=== PATIENT | female | born 1990 | race Caucasian/White ===

== ENCOUNTER 2018-02-19 11:10 | Emergency (ER) | payer OTHER ==
[~2018-02-19] VITALS: Ht 170.2 cm; Wt 98.4 kg
[~2018-02-19 11:10] MED LIST: FISH OIL CONCEN1 SGL PO; HYDROCODONE/ACE1 TA1 PO; ORTHO TRI-CYCL1 EACH PO; PRILOSEC40 MG PO; TRAMADOL HCL50 M1 PO; XANAX0.5 M1 PO; ZANTAC150 MG PO
--- NOTE | 2018-02-19 12:49 | ED CARDIAC/CP/PALPITATIONS ---
History of Present Illness General Chief Complaint: Chest Pain Stated Complaint: SIB CHEST PAIN,RADIATES TO BACK AND LEG Source: patient Exam Limitations: no limitations Vital Signs & Intake/Output Vital Signs & Intake/Output Vital Signs Date Time Temp Pulse Resp B/P B/P Pulse O2 O2 Flow FiO2 Mean Ox Delivery Rate 02/19 1659 97.8 68 18 123/75 99 Room Air 02/19 1400 98.0 68 18 124/75 99 Room Air 02/19 1250 99 Room Air 02/19 1152 98.0 92 18 155/92 97 Room Air Room Air Allergies Coded Allergies: Penicillins (RASH, HIVES 02/13/16) amoxicillin (RASH, HIVES 02/13/16) Reconcile Medications Alprazolam (Xanax) 0.5 MG TABLET 1 TAB PO BIDP PRN ANXIETY (Reported) Cyclobenzaprine HCl 10 MG TABLET 1 TAB PO TID SPASMS Methylprednisolone. (Medrol) 4 MG TAB.DS.PK 1 DP PO AD BACK/CALF PAIN 6 on day 1 then reduce by one tablet daily until gone Norgestimate-Ethinyl Estradiol (Ortho Tri-Cyclen 28 Tablet) 1XOXYS9 28 TABLET 1 TAB PO DAILY BC (Reported) Omeprazole 40 MG CAPSULE.DR 1 CAP PO DAILY ACID REFLUX (Reported) Triage Note: PT TO ED WITH C/O FOOT NUMBNESS FOR A WEEK ON AND OFF. ALSO C/O UPPER ABD PAIN SINCE THIS AM, "I HAD A ULCER A WHILE AGO, I'M ON MEDS FOR IT, AND I AM GOING FOR A US FOR MY GALLBLADDER SOON". LAST MENSES: 01/21/18. Triage Nurses Notes Reviewed? yes Onset: Abrupt Duration: day(s): (9), constant Timing: recent history Quality/Severity: moderate Activities at Onset: none : No Patient currently breastfeeds: No HPI: 28-year-old female comes into the emergency room complaints of pain to her right And some chest pains. She reports that she been having symptoms for the past 9 days. She has pain from her right calf that shoots down to her foot. She denies any fever. She denies any chills. She has not been experiencing some associated chest pains. Sharp. Radiates to her shoulders. Denies any vomiting. Nothing seemed to make the symptoms better or worse. She called her doctor who sent her in here for further evaluation for possible blood clots. She is on control. (Darrin Ramey) Past History Travel History Traveled to [place] past 21 day No Medical History Any Pertinent Medical History? see below for history Neurological: NONE EENT: NONE Cardiovascular: NONE Respiratory: NONE Gastrointestinal: NONE Hepatic: NONE Renal: NONE Musculoskeletal: NONE Psychiatric: NONE Endocrine: NONE Blood Disorders: NONE SCIENTIFIC LABORATORY SUPERVISOR/Reproductive: NONE Surgical History Surgical History: N Psychosocial History What is your primary language [place] Tobacco Use: Never used ETOH Use: denies use Illicit Drug Use: denies illicit drug use Family History Hx Contributory? No (Darrin Ramey) Review of Systems Review of Systems Constitutional: Reports: no symptoms. EENTM: Reports: no symptoms. Respiratory: Reports: see HPI. Cardiovascular: Reports: see HPI. GI: Reports: no symptoms. Genitourinary: Reports: no symptoms. Musculoskeletal: Reports: see HPI. Skin: Reports: no symptoms. Neurological/Psychological: Reports: no symptoms. Hematologic/Endocrine: Reports: no symptoms. Immunologic/Allergic: Reports: no symptoms. All Other Systems: Reviewed and Negative (Darrin Ramey) Physical Exam Physical Exam General Appearance: well developed/nourished, no apparent distress, alert, awake Head: atraumatic, normal appearance Eyes: Bilateral: normal appearance, EOMI. Ears, Nose, Throat: normal ENT inspection, hearing grossly normal Neck: normal inspection Respiratory: normal breath sounds, no respiratory distress Cardiovascular: regular rate/rhythm Gastrointestinal: soft, non-tender Back: normal inspection Extremities: normal inspection, no edema Neurologic/Psych: awake, alert, oriented x 3, normal gait Skin: intact, normal color Core Measures ACS in differential dx? No CVA/TIA Diagnosis No Sepsis Present: No Sepsis Focused Exam Completed? No (Darrin Ramey) Progress Differential Diagnosis: AMI, aortic dissection, costochondritis, hyperthyroid, myocarditis, pancreatitis, pericarditis, pneumonia, pneumothorax, pulmonary embolism, PUD/GERD Plan of Care: Orders Procedure Date/time Status Telemetry/Tax Lawyer 02/19 1248 Active URINE 02/19 1248 Complete TROPONIN LEVEL 02/19 1248 Complete D-DIMER 02/19 1248 Complete COMPREHENSIVE METABOLIC PANEL 02/19 1248 Complete CBC WITHOUT DIFFERENTIAL 02/19 1248 Complete EKG 02/19 1113 Active Laboratory Tests 02/19/18 1450: Urine Test NEGATIVE 02/19/18 1310: Anion Gap 15, Estimated GFR > 60, BUN/Creatinine Ratio 18.6, Glucose 99, Calcium 9.2, Total Bilirubin 0.6, AST 29, ALT 28, Alkaline Phosphatase 92, Troponin I < 0.01, Total Protein 7.1, Albumin 3.9, Globulin 3.2, Albumin/Globulin Ratio 1.2, D-Dimer High Sensitivty < 200, CBC w Diff NO MAN DIFF REQ, RBC 4.18 L, MCV 84.9 , MCH 28.5, MCHC 33.6, RDW 15.0 H, MPV 7.3 L, Gran % 69.0, Lymphocytes % 23.9, Monocytes % 6.1, Eosinophils % 0.6, Basophils % 0.4, Absolute Granulocytes 5.6, Absolute Lymphocytes 1.9, Absolute Monocytes 0.5, Absolute Eosinophils 0, Absolute Basophils 0 Diagnostic Imaging: Viewed by Me: Radiology Read, Ultrasound. Discussed w/RAD: Radiology Read, Ultrasound. Radiology Impression: PATIENT: JOHANNE KESSLER MEDICAL RECORD NO: PRESENT AGE: 28 PATIENT ACCOUNT NO: [id number] : 88 LOCATION: [facility] ORDERING PHYSICIAN: Darrin HULL SERVICE DATE: 02/19/18 EXAM TYPE : RAD - XRY-CHEST XRAY, TWO VIEWS EXAMINATION: XR CHEST CLINICAL INFORMATION: 28 -year-old female with chest pain and shortness of breath. COMPARISON: Chest x- ray on 12/09/2017. (Normal). TECHNIQUE: 2 views of the chest were obtained. FINDINGS: No significant abnormality is noted involving the heart, lungs, mediastinum, bony thorax or soft tissues. IMPRESSION: Unremarkable examination. DICTATED BY: Drew Hogan MD DATE/TIME DICTATED:02/19/181619 EDITORIAL CARTOONIST:BARRY DATE/TIME TRANSCRIBED:02/19/181619 CONFIDENTIAL, DO NOT COPY WITHOUT APPROPRIATE AUTHORIZATION. <Electronically signed in Other Vendor System> SIGNED BY: Drew Hogan MD 02/19/18 1626, PATIENT: JOHANNE KESSLER MEDICAL RECORD NO: PRESENT AGE: 28 PATIENT ACCOUNT NO: [id number] : 88 LOCATION: [facility] ORDERING PHYSICIAN: Darrin HULL SERVICE DATE: 02/19/18 EXAM TYPE: US - US-EXT BILAT VENOUS DOPPLER EXAMINATION: BILATERAL LOWER EXTREMITY DEEP VENOUS ULTRASOUND CLINICAL INFORMATION: Right calf pain COMPARISON: No similar prior examinations are minimal for comparison. TECHNIQUE: Duplex Doppler imaging with compression maneuvers were performed of the bilateral lower extremity deep venous systems. FINDINGS: The bilateral visualized common femoral, femoral and popliteal veins demonstrate normal compressibility and color flow without evidence of venous thrombosis. Visualized portions of the bilateral calf veins demonstrate normal color fill-in suggesting patency. There is no evidence of a Maldonado's cyst. IMPRESSION: No evidence of deep venous thrombosis involving the bilateral lower extremities. DICTATED BY: Alonso Palumbo MD DATE/TIME DICTATED:02/19/181444 EDITORIAL CARTOONIST:BARRY DATE/TIME TRANSCRIBED:02/19/181444 CONFIDENTIAL, DO NOT COPY WITHOUT APPROPRIATE AUTHORIZATION. <Electronically signed in Other Vendor System> SIGNED BY: Alonso Palumbo MD 02/19/18 1322 Initial ED EKG: normal sinus rhythm, rate (84), BORDERLINE T WAVE ABNORMALITIES Comments: 02/19/2018 5:34:34 PM Patient clinically looks well. Patient is in no apparent distress. Patient is nontoxic-appearing. Resting comfortably in room. No evidence of DVT. No suspicion for PE. Her Pain could be lumbar radiculopathy/sciatica. She reports that she is noticing at this time that she is experiencing some pain from her upper back now shooting down her leg. She did not have that prior. In regards to chest pain her dimer is negative. Chest x-ray within normal limits. Normal troponin. She has no current abdominal pain on exam. Does not feel like her previous peptic ulcer. She is on a PPI already. She can follow-up with her PCP. Patient was seen by Dr. Bonner. (Vinicio HULL,Darrin) Departure Departure Disposition: HOME OR SELF CARE Condition: Stable Clinical Impression Primary Impression: Right calf pain Secondary Impressions: Atypical chest pain Referrals: Yin Esparza DO (PCP/Family) Additional Instructions: Take Medrol Dosepak and Flexeril as prescribed. Follow-up with PCP. Return if any concerns worsening symptoms. Please go over all results of today's visit with your primary care doctor. Contact your primary care doctor to let them know you were here in the emergency room. There may be nonspecific findings which may not be related to your visit today here in the emergency room but may require further evaluation and chronic monitoring by your primary care doctor. If you had a laceration today the chance of foreign body always remains. You should follow-up with your primary care doctor for recheck in 3-5 days for a wound check. If you had an x-ray done there is a chance that a fracture could have been missed on initial read and you should follow-up with your primary care doctor for repeat x-rays if symptoms persist. If your blood pressure was elevated here in the emergency room please have rechecked by [facility] primary care doctor within the next 48. If you were prescribed a narcotic here in the emergency room or any type of controlled substances you're not allowed to drive while taking this medication or operate any type of heavy machinery. Narcotics can make you feel lightheaded dizziness nausea and can cause constipation. You may need to cigar packer and picker a stool softener. Thank you for choosing [facility] emergency room. Please return to the emergency room immediately if you have any other concerns worsening of symptoms. Departure Forms: Customer Survey General Discharge Information Prescriptions: Current Visit Scripts Methylprednisolone. (Medrol) 1 DP PO AD #1 DP 6 on day 1 then reduce by one tablet daily until gone Cyclobenzaprine HCl 1 TAB PO TID #20 TAB (Darrin Ramey) PA/DAM OPERATOR Co-Sign Statement Statement: ED Attending supervision documentation- [X] I saw and evaluated the patient. I have also reviewed all the pertinent lab results and diagnostic results. I agree with the findings and the plan of care as documented in the PA's/DAM OPERATOR's documentation. [] I have reviewed the ED Record and agree with the PA's/DAM OPERATOR's documentation. [] Additions or exceptions (if any) to the PAs/DAM OPERATOR's note and plan are summarized below: [] (Santiago Bonner DO) Critical Care Note Critical Care Note Critical Care Time: non-applicable (Darrin Ramey)
[2018-02-19] MEDS ORDERED: OMEPRAZOLE40 M1 PO (12:51)
[2018-02-19 13:22] LABS: ABSOLUTE BASOPHIL COUNT 0 /CUMM (0.0-0.2); ABSOLUTE EOSINOPHIL COUNT 0 /CUMM (0.0-0.7); ABSOLUTE GRANULOCYTE CT 5.6 /CUMM (1.4-6.5); ABSOLUTE LYMPH COUNT 1.9 /CUMM (1.2-3.4); ABSOLUTE MONOCYTE COUNT 0.5 /CUMM (0.10-0.60); BASOPHIL % 0.4 % (0.0-2.0); EOSINOPHIL % 0.6 % (0-5); HEMATOCRIT 35.5 % (37-47); MEAN CORPUSCULAR HGB 28.5 PG (27.0-31.0); MEAN CORPUSCULAR HGB CONC 33.6 G/DL (33.0-37.0); MEAN CORPUSCULAR VOLUME 84.9 FL (81.0-99.0); MEAN PLATELET VOLUME 7.3 FL (7.4-10.4); PLATELET COUNT 333 /CUMM (130-400); RED BLOOD CELL CT 4.18 /CUMM (4.20-5.40); WHITE BLOOD CELL COUNT 8.1 /CUMM (4.8-10.8)
--- NOTE | 2018-02-19 14:51 | ULTRASOUND REPORT ---
EXAMINATION: BILATERAL LOWER EXTREMITY DEEP VENOUS ULTRASOUND CLINICAL INFORMATION: Right calf pain COMPARISON: No similar prior examinations are minimal for comparison. TECHNIQUE: Duplex Doppler imaging with compression maneuvers were performed of the bilateral lower extremity deep venous systems. FINDINGS: The bilateral visualized common femoral, femoral and popliteal veins demonstrate normal compressibility and color flow without evidence of venous thrombosis. Visualized portions of the bilateral calf veins demonstrate normal color fill-in suggesting patency. There is no evidence of a Maldonado's cyst. IMPRESSION: No evidence of deep venous thrombosis involving the bilateral lower extremities.
--- NOTE | 2018-02-19 16:26 | RADIOLOGY REPORT ---
EXAMINATION: XR CHEST CLINICAL INFORMATION: 28-year-old female with chest pain and shortness of breath. COMPARISON: Chest x-ray on 12/09/2017. (Normal). TECHNIQUE: 2 views of the chest were obtained. FINDINGS: No significant abnormality is noted involving the heart, lungs, mediastinum, bony thorax or soft tissues. IMPRESSION: Unremarkable examination.
[2018-02-19] MEDS ORDERED: CYCLOBENZAPRINE10 M1 PO (16:39)
[2018-02-19] MEDS ORDERED: MEDROL4 M2 PO (16:39)
[2018-02-19 16:59] VITALS: BP 123/75
== END 2018-02-19 17:05 ==
LOC: ERH 11:10
PROVIDERS: Physician Assistant Medical
DX: R07.89 Other chest pain (principal); M79.661 Pain in right lower leg
CPT/HCPCS: 71046; 81025; 93005; 93010; 93970